=== PATIENT | male | born 1970 | race African-American/Black ===

== ENCOUNTER 2019-12-28 10:49 | Emergency (ER) | payer OTHER ==
[~2019-12-28] VITALS: Ht 170.2 cm; Wt 73.9 kg
[2019-12-28 10:55] VITALS: BP 140/84
[2019-12-28] MEDS ORDERED: METFORMIN HCL1000 M1 ORAL (11:02)
--- NOTE | 2019-12-28 11:13 | NUR ---
ED Nurse Note: pt arrives from home as in triage note. denies cp or dyspnea. no n/v/d. pt a/ox4. md zapata of pt.
--- NOTE | 2019-12-28 11:49 | NUR ---
ED Nurse Note: radiology notified of need for xrays. pt remains without new c/o.
--- NOTE | 2019-12-28 12:15 | NUR ---
ED Nurse Note: Patient was taken for CT
[2019-12-28] MEDS ORDERED: ROBAXIN-500MG ORAL (12:33)
--- NOTE | 2019-12-28 12:35 | NUR ---
ED Nurse Note: Patiluzrt is back
--- NOTE | 2019-12-28 12:36 | Emergency Room Report ---
History of Present Illness General Chief Complaint: Pain Source: Patient Present Illness HPI Patient is a 49-year-old male who presents after increased left-sided pain. Patient reports having pain to the shoulder as well as to the left upper extremity and the small finger. He is right-hand dominant. Prior history of diabetes. Pain is worse with movements of his neck. Denies any fever. Denies any sudden onset. No exertional changes. Reports having adequately controlled blood sugars. Denies any fever shortness of breath Allergies: Coded Allergies: No Known Allergies (Unverified , 12/28/19) COVID-19 Screening Contact w/high risk pt: No Recent Travel to affected area: No Experienced COVID-19 symptoms?: No Patient History Reviewed Nursing Documentation: PMH: Agreed; PSxH: Agreed Nursing Documentation-PM Past Medical History: No History, Except For Hx Cardiac Problems: No Hx Hypertension: No Hx Pacemaker: No Hx Asthma: No Hx COPD: No Hx Diabetes: Yes Hx Cancer: No Hx Gastrointestinal Problems: No Hx Dialysis: No History Of Psychiatric Problem: No Hx Neurological Problems: No Hx Cerebrovascular Accident: No Hx Seizures: No Review of Systems All Other Systems: negative except mentioned in HPI Physical Exam Vital Signs Date Time Temp Pulse Resp B/P (MAP) Pulse Ox O2 Delivery O2 Flow Rate FiO2 12/28/19 10:55 98.2 82 14 140/84 (102) 99 Room Air General Appearance: well appearing, no apparent distress, alert, GCS 15 Head: normocephalic, atraumatic ENT: hearing grossly normal, normal voice Neck: supple, limited range of motion Respiratory: chest non-tender, no respiratory distress, speaking full sentences Cardiovascular #1: normal inspection, regular rate, rhythm Gastrointestinal: normal inspection Musculoskeletal: normal inspection, no calf tenderness Neurologic: alert, motor strength/tone normal, pie filling mixer III-XII nml as tested, EOM palsy, oriented x3, normal gait Psychiatric: mood/affect normal Skin: no rash Medical Decision Making Diagnostic Impression: Primary Impression: Cervical radiculopathy ER Course Patient presented for left arm pain and finger numbness. Differential diagnosis include was not limited to radiculopathy, myocardial injury, cervical disc herniation among others. X-ray imaging was ordered to patient's complains of pain and physical exam findings. Plain film x-rays of the cervical spine interpreted by me showed normal bony alignment without evident fracture. Patient EKG interpreted by me showed normal sinus rhythm with a rate of [address] or T wave changes. Patient appears to be stable and patient's symptoms appear to be related to a cervical radiculopathy. He was advised follow-up with his primary care physician for further work-up and possible MRI. He is advised to return if worse. The patient is advised to follow up with primary care doctor in 1-2 days. Patient is advised to return if any worsening condition or if any changes in status that are concerning. This report is dictated with [employer] mapping editor software which may occasionally lead to discrepancies related to use of this software. EKG Diagnostic Results Rate: normal Rhythm: NSR ST Segments: no acute changes Last Vital Signs Date Time Temp Pulse Resp B/P (MAP) Pulse Ox O2 Delivery O2 Flow Rate FiO2 12/28/19 10:55 98.2 14 140/84 99 Room Air 12/28/19 10:55 82 Status: improved Disposition: HOME, SELF-CARE Condition: Stable Scripts Methocarbamol* (ROBAXIN-500*) 500 Mg Tablet 500 MG ORAL TID PRN for For Pain, #15 TAB 0 Refills Prov: Carl Bhatia MD 12/28/19 Referrals: SHAYLA DAMON,REFERRING (PCP) Carl Bhatia MD Dec 28, 2019 12:36
[2019-12-28 12:38] VITALS: BP 140/84
--- NOTE | 2019-12-28 12:38 | NUR ---
ER DISCHARGE NOTE: Patient is cleared to be discharged per ERMD, pt is aox4, on room air, with stable vital signs. pt was given dc and prescription instructions, pt was able to verbalize understanding, pt id band and iv site removed without complications. pt is able to ambulate with steady gait. pt took all belongings.
--- NOTE | 2019-12-28 13:39 | Diagnostic Imaging Report ---
Indication: Neck and chest pain Technique: 3 views of the cervical spine Comparison: none Findings: Bony alignment is normal. No prevertebral soft tissue swelling. Vertebral body heights are preserved. The disc spaces are preserved. No acute fractures. No dislocations Impression: Negative
== END 2019-12-28 12:38 | disposition home or self-care (01) ==
LOC: EMR 11:15
DX: M54.12 Radiculopathy, cervical region (principal); R20.0 Anesthesia of skin; E11.9 Type 2 diabetes mellitus without complications
CPT/HCPCS: 72040; Z7502; 99283